=== PATIENT | female | born 1940 | race Hispanic/Latino ===

== ENCOUNTER 2019-07-31 10:15 | Emergency (ER) | payer OTHER ==
[2019-07-31] MEDS ORDERED: HYDROCODONE/ACETAMINOPHEN 10/325 MG TAB ONE (10:53)
== END 2019-07-31 11:51 | disposition home or self-care (01) ==
LOC: EDH 10:15
DX: M54.42 Lumbago with sciatica, left side (principal); K21.9 Gastro-esophageal reflux disease without esophagitis; E07.9 Disorder of thyroid, unspecified; Z98.890 Other specified postprocedural states
CPT/HCPCS: 72100; 72170

== ENCOUNTER 2020-06-03 09:22 | Observation (INO) | payer OTHER ==
[~2020-06-03] VITALS: Ht 152.4 cm; Wt 57.6 kg
[2020-06-03 09:50] LABS: BASOPHILS % (AUTO) 0.7 % (0.0-5.0); EOSINOPHILS % (AUTO) 0.9 % (0.0-8.0); HEMATOCRIT 34.2 % (36-48); LYMPHOCYTES % (AUTO) 21.9 % (21.0-51.0); MEAN CORPUSCULAR HGB CONC 35.7 g/dL (32.0-36.0); MEAN CORPUSCULAR VOLUME 92.4 fL (79-99); MONOCYTES % (AUTO) 7.7 % (3.0-13.0); NEUTROPHILS % (AUTO) 68.4 % (40.0-77.0); PLATELET COUNT (AUTO) 176 K/uL (130-400); RED CELL DISTRIBUTION WIDTH 11.3 % (11.0-15.5); WHITE BLOOD COUNT (AUTO) 4.5 K/uL (4.8-10.8)
[2020-06-03] MEDS ORDERED: LORAZEPAM 2 MG/ML 1 ML VIAL ONE (09:51)
[2020-06-03 10:02] LABS: INR 1.1 (0.85-1.15); PARTIAL THROMBOPLASTIN TIME 26.9 SEC (26.3-35.5); PROTHROMBIN TIME 11.8 SEC (9.6-11.6)
[2020-06-03 10:07] LABS: ALBUMIN 3.7 g/dL (3.5-5.0); BILIRUBIN,TOTAL 0.7 mg/dL (0.2-1.0); POTASSIUM 3.5 mmol/L (3.5-5.1); TOTAL PROTEIN, SERUM 7.6 g/dL (6.0-8.3)
[2020-06-03 10:53] LABS: APPEARANCE,URINE CLEAR (CLEAR); BILIRUBIN,URINE NEGATIVE (NEGATIVE); COLOR,URINE YELLOW (YELLOW); GLUCOSE, URINE (UA) NEGATIVE (NEGATIVE); KETONES,URINE NEGATIVE (NEGATIVE); LEUKOCYTE ESTERASE ,URINE TRACE (NEGATIVE); NITRATE,URINE NEGATIVE (NEGATIVE); OCCULT BLOOD,URINE NEGATIVE (NEGATIVE); PROTEIN,URINE NEGATIVE (NEGATIVE); UROBILINOGEN,URINE 0.2 mg/dL (0.2-1.0)
[2020-06-03 11:05] LABS: AMPHET/METH SCREEN,URINE NEGATIVE (NEGATIVE); BARBITURATE SCREEN, URINE NEGATIVE (NEGATIVE); BENZODIAZEPINES SCREEN,URINE NEGATIVE (NEGATIVE); CANNABINOID SCREEN,URINE NEGATIVE (NEGATIVE); COCAINE SCREEN,URINE NEGATIVE (NEGATIVE); OPIATE SCREEN,URINE NEGATIVE (NEGATIVE); PHENCYCLIDINE SCREEN,URINE NEGATIVE (NEGATIVE)
[2020-06-03 11:12] LABS: BACTERIA,URINE None Seen /HPF (None Seen); RBC,URINE None Seen /HPF (0-1); WBC,URINE 0-1 /HPF (0-1)
[2020-06-03] MEDS ORDERED: ASPIRIN 325 MG TABLET ONE (11:37)
[2020-06-03] MEDS ORDERED: ONDANSETRON HCL 4 MG/2 ML VIAL IVP PRN (12:45)
[2020-06-03] MEDS ORDERED: LACTULOSE 20 GM/30 ML UDCUP PO PRN (12:45)
[2020-06-03] MEDS: SODIUM CHLORIDE 0.9% 1000ML 1,000 ML IV SCH (12:45)
[2020-06-03] MEDS ORDERED: HYDRALAZINE HCL 20 MG/ML VIAL IV PRN (12:45)
[2020-06-03] MEDS ORDERED: GADODIAMIDE 10 MMOL/20 ML VIAL IV ONE (13:23)
[2020-06-03] MEDS ORDERED: HYDRALAZINE HCL 20 MG/ML VIAL ONE ×2 (13:31→20:32)
[2020-06-03] MEDS ORDERED: SODIUM CHLORIDE 0.9% 1000ML 1,000 ML IV ONE (13:32)
--- NOTE | 2020-06-03 16:40 | NUR ---
RD NOTIFICATION Pt s/p Stroke, pending admission. Pt is NPO pending ST Evaluation/Swallow Evaluation. Pt did well with water as per RN. Recommend NPO pending ST Evaluation. RD to follow up with Nutrition Education. RD to continue to monitor.
[2020-06-03] MEDS ORDERED: ATORVASTATIN CALCIUM 20 MG TABLET ONE (20:42)
[2020-06-03 20:55] VITALS: BP 185/80
[2020-06-03] MEDS: ATORVASTATIN CALCIUM 20 MG TABLET PO SCH (21:00)
[2020-06-03] MEDS ORDERED: FLUO20CA30 PO (21:54)
[2020-06-03] MEDS ORDERED: PANT40TA54 PO (21:54)
[2020-06-03] MEDS ORDERED: LOSA100T58 PO (21:54)
[2020-06-03] MEDS ORDERED: SUCR1TAB2 PO (21:54)
[2020-06-03] MEDS ORDERED: SULF1TAB41 PO (21:54)
[2020-06-03] MEDS ORDERED: AMOX875T2 PO (21:54)
[2020-06-03] MEDS ORDERED: LEVO88TA7 PO (21:54)
[2020-06-03] MEDS ORDERED: ACETAMINOPHEN 325 MG TAB ONE (22:29)
[2020-06-03] MEDS ORDERED: ALPRAZOLAM 0.25 MG TABLET ONE (22:29)
[2020-06-03] MEDS ORDERED: ALPRAZOLAM 0.25 MG TABLET PO ONE (22:30)
[2020-06-03] MEDS ORDERED: HYDROCODONE/ACETAMINOPHEN 5/325 MG TAB PO PRN (22:30)
[2020-06-03] MEDS ORDERED: ACETAMINOPHEN 325 MG TAB PO PRN (22:30)
[2020-06-04] VITALS (7 sets, daily range): BP systolic 113–172; BP diastolic 59–79
[2020-06-04 04:30] LABS: BASOPHILS % (AUTO) 0.3 % (0.0-5.0); EOSINOPHILS % (AUTO) 0.2 % (0.0-8.0); LYMPHOCYTES % (AUTO) 21.8 % (21.0-51.0); MEAN CORPUSCULAR HEMOGLOBIN 33.1 pg (27.0-33.0); MEAN CORPUSCULAR HGB CONC 36.4 g/dL (32.0-36.0); MEAN CORPUSCULAR VOLUME 91.2 fL (79-99); MONOCYTES % (AUTO) 6.1 % (3.0-13.0); NEUTROPHILS % (AUTO) 71.3 % (40.0-77.0); PLATELET COUNT (AUTO) 172 K/uL (130-400); RED BLOOD CELL COUNT(AUTO) 3.62 MIL/uL (4.00-5.50); RED CELL DISTRIBUTION WIDTH 11.6 % (11.0-15.5); WHITE BLOOD COUNT (AUTO) 5.9 K/uL (4.8-10.8)
[2020-06-04 04:38] LABS: HEMOGLOBIN A1C 5.6 % (4.0-6.0)
[2020-06-04 04:50] LABS: ALANINE AMINOTRANSFERASE 24 U/L (12-78); ALBUMIN 3.7 g/dL (3.5-5.0); ASPARTATE AMINOTRANSFERASE 21 U/L (10-37); CARBON DIOXIDE 25 mmol/L (21-32); CHLORIDE 103 mmol/L (101-111); CHOLESTEROL 173 mg/dL (<200); CREATINE KINASE, TOTAL 32 U/L (21-232); CREATININE 0.8 mg/dL (0.5-1.5); GLOMERULAR FILTR. RATE CALC 73 mL/min (>60); GLUCOSE,RANDOM 101 mg/dL (70-105); HDL CHOLESTEROL 103 mg/dL (35-85); LDL DIRECT 113 mg/dL (0-99); MYOGLOBIN 50 ng/mL (10-92); PHOSPHORUS 4.2 mg/dL (2.5-4.9); POTASSIUM 3.3 mmol/L (3.5-5.1); SODIUM SERUM 139 mmol/L (136-145); TOTAL PROTEIN, SERUM 7.2 g/dL (6.0-8.3); TRIGLYCERIDES 59 mg/dL (30-200); TROPONIN I < 0.04 ng/mL (0.00-0.06); UREA NITROGEN, BLOOD 15 mg/dL (7-18)
[2020-06-04 05:02] LABS: PLATELET MORPHOLOGY PLT CLUMPS PRESENT
[2020-06-04] MEDS: SODIUM CHLORIDE 0.9% 1000ML 1,000 ML IV SCH (08:45)
--- NOTE | 2020-06-04 09:30 | NUR ---
DYSPHAGIA EVAL COMPLETED. -S/S OF ASPIRATION. RECOMMEND REGULAR TEXTURE, THIN LIQUIDS; PILLS WHOLE WITH LIQUIDS. PARTIAL DENTURE NOT IN PLACE AT THIS TIME. Pt IS ABLE TO COMPENSATE FOR MISSING DENTITION. Addendum: 06/04/20 at 1154 by MARILEE HERNANDEZ, [facility] ST Amended: Links added.
--- NOTE | 2020-06-04 10:00 | NUR ---
COGNITIVE EVAL COMPLETE. COGNITIVE-LINGUISTIC ABILITIES WITHIN FUNCTIONAL LIMITS. EVALUATION: Pt AAOX3. Pt REQUESTS WANTS AND NEEDS INDEPENDENTLY. Pt INTELLIGIBLE AT 100% ACCURACY TO THE UNFAMILIAR LISTENER. Pt COMMUNICATING AT CONVERSATIONAL LEVEL WITH NO DEFICITS IDENTIFIED AT THIS TIME. Pt COMPLETED COGNITIVE-LINGUISTIC EVALUATION TARGETING: ORIENTATION, ATTENTION/CONCENTRATION, MEMORY (IMMEDIATE, SHORT-TERM AND LONG-TERM), PROBLEM SOLVING, LOGIC/REASONING/INFERENCE, THOUGHT ORGANIZATION, FUNCTIONAL MATH AND TELLING TIME. Pt ABLE TO COMPLETE TASKS WITH CORRECT AND TIMELY ANSWERS TO ALL SECTIONS. G-CODES SPOKEN LANGUAGE EXPRESSION: [id number] Addendum: 06/04/20 at 1147 by MARILEE HERNANDEZ [facility] Amended: Links added.
[2020-06-04] MEDS: ASPIRIN 81MG TAB.CHEW PO SCH (10:01)
[2020-06-04] MEDS: FAMOTIDINE/PF 20 MG/2 ML VIAL IV SCH (10:01)
[2020-06-04] MEDS: GABAPENTIN 100 MG CAPSULE PO SCH ×2 (10:04→22:17)
[2020-06-04] MEDS ORDERED: POTASSIUM CHLORIDE 20MEQ/100ML 100 ML IV PRN (11:45)
[2020-06-04] MEDS ORDERED: LIDOCAINE HCL-MPF 1% 2ML VIAL IV PRN (11:45)
[2020-06-04] MEDS ORDERED: POTASSIUM CHLORIDE 10% ELIXIR 20 MEQ/15 ML UDCUP PO PRN (11:45)
[2020-06-04] MEDS ORDERED: MAGNESIUM 2GM PREMIX 50ML 50 ML IV PRN (11:45)
[2020-06-04] MEDS: POTASSIUM CHLORIDE 20 MEQ ERTAB PO PRN ×3 (14:43→18:49)
[2020-06-04] MEDS: ATORVASTATIN CALCIUM 20 MG TABLET PO SCH (22:17)
[2020-06-05 03:41] VITALS: BP 111/52
[2020-06-05 03:59] LABS: BASOPHILS % (AUTO) 0.3 % (0.0-5.0); EOSINOPHILS % (AUTO) 1.1 % (0.0-8.0); HEMATOCRIT 34.2 % (36-48); LYMPHOCYTES % (AUTO) 26.7 % (21.0-51.0); MEAN CORPUSCULAR HEMOGLOBIN 32.8 pg (27.0-33.0); MEAN CORPUSCULAR HGB CONC 35.1 g/dL (32.0-36.0); MEAN CORPUSCULAR VOLUME 93.4 fL (79-99); MONOCYTES % (AUTO) 8.3 % (3.0-13.0); NEUTROPHILS % (AUTO) 63.1 % (40.0-77.0); PLATELET COUNT (AUTO) 184 K/uL (130-400); RED BLOOD CELL COUNT(AUTO) 3.66 MIL/uL (4.00-5.50); RED CELL DISTRIBUTION WIDTH 11.8 % (11.0-15.5); WHITE BLOOD COUNT (AUTO) 6.5 K/uL (4.8-10.8)
[2020-06-05 04:34] LABS: CREATININE 0.9 mg/dL (0.5-1.5)
[2020-06-05 08:00] VITALS: BP 158/66
[2020-06-05] MEDS ORDERED: LEVOTHYROXINE 88 MCG TABLET PO SCH (08:00)
--- NOTE | 2020-06-05 08:00 | NUR ---
AM SHIFT ASSESSMENT. AAO, NO NEURO DEFICITS OBSERVED. SPEECH CLEAR, FACE SYMMETRICAL. ABLE TO MOVE ALL LIMBS.
[2020-06-05] MEDS ORDERED: LOSARTAN 100 MG TABLET PO SCH (09:00)
[2020-06-05] MEDS ORDERED: FLUOXETINE HCL 20 MG CAPSULE PO SCH (09:00)
[2020-06-05] MEDS: ASPIRIN 81MG TAB.CHEW PO SCH (10:05)
[2020-06-05] MEDS: GABAPENTIN 100 MG CAPSULE PO SCH (10:05)
[2020-06-05] MEDS: FAMOTIDINE/PF 20 MG/2 ML VIAL IV SCH (10:05)
[2020-06-05 11:00] VITALS: BP 137/64
--- NOTE | 2020-06-05 11:14 | NUR ---
RD FOLLOW UP Pt with Spinal Canal Stenosis, Stroke ruled out as per SPIKE MACHINE FEEDER note. S/p Swallow evaluation with negative S/S for aspiration. Pt tolerating Heart Healthy diet order, however with poor appetite and PO intake. Recommend continue Heart Healthy diet order Recommend Ensure BID RD to continue to monitor. Please notify as additional nutrition concerns arise. Thank you. Addendum: 06/05/20 at [address] RD Amended: Links added.
--- NOTE | 2020-06-05 14:17 | NUR ---
FOLLOW UP COMPLETED. Pt TOLERATING REGULAR TEXTURE, THIN LIQUID DIET. NO OVERT S/S OF ASPIRATION DURING P.O. AT THIS TIME. RECOMMEND CONTINUED DIET. SKILLED SPEECH THERAPY NOT WARRANTED AT THIS TIME. Addendum: 06/05/20 at 1418 by MARILEE HERNANDEZ, SPT ST Amended: Links added.
[2020-06-05] MEDS ORDERED: GABA100C PO (14:18)
[2020-06-05] MEDS ORDERED: ATOR20TA65 PO (14:18)
[2020-06-05] MEDS ORDERED: ASPI-1005 PO (14:18)
--- NOTE | 2020-06-05 18:00 | NUR ---
DISCHARGED NOW USING TEACH BACK, WILL FOLLOW UP WITH DR. LOVE IN 1 WEEK AND APPT. HAS BEEN SET UP. RX. SEND TO [facility] IN [place] FOR NEW MEDS. SALINE LOCK REMOVED. HEART MONITOR ALSO REMOVED. ALL QUESTIONS ANSWERED.VERBALIZED UNDERSTANDING OF ALL INST. GIVEN.
== END 2020-06-05 17:40 | disposition home or self-care (01) ==
LOC: EDH 09:22 → EDHIP 12:32 → 3BH 19:32
PROVIDERS: ADMIT Internal Medicine; ATTEND Internal Medicine
DX: I63.9 Cerebral infarction, unspecified (principal); K21.9 Gastro-esophageal reflux disease without esophagitis; I10 Essential (primary) hypertension; E89.0 Postprocedural hypothyroidism; M48.02 Spinal stenosis, cervical region; F80.1 Expressive language disorder; M50.10 Cervical disc disorder with radiculopathy, unspecified cervical region; Z86.73 Personal history of transient ischemic attack (TIA), and cerebral infarction without residual deficits; Z90.49 Acquired absence of other specified parts of digestive tract; Z79.899 Other long term (current) drug therapy; G31.89 Other specified degenerative diseases of nervous system
CPT/HCPCS: 36415 ×3; 70450; 70553; 71045 ×2; 72141; 80048; 80053 ×2; 80061; 80305; 81001; 82550 ×2; 83036; 83721; 83735; 83874; 84100; 84484 ×2; 85025 ×3; 85610; 85730; 92522; 92610; 93005; 96365; 96366; 96375; 96376; 99285; A9579; G0378 ×13; J0360 ×4; J2060; J3475; J3490 ×2; J7030